=== PATIENT | male | born 1965 | race Caucasian/White ===

== ENCOUNTER 2019-06-08 16:17 | Emergency (ER) | payer OTHER ==
[~2019-06-08] VITALS: Ht 188 cm; Wt 108.9 kg
--- NOTE | 2019-06-08 16:27 | NUR ---
PATIENT BROUGHT IN BY [employer]. PATIENT FELL AT HOME, HAS LIP LACERATION. PATIENT POSITIVE FOR ORTHOSTATIC HYPOTENSION PER [employer] 500ML NS STARTED BY [employer]. LEFT AC IV STARTED ON THE FIELD
--- NOTE | 2019-06-08 16:29 | NUR ---
WALKED IN AT BEDSIDE
[2019-06-08] MEDS ORDERED: IV NORMAL SALINE 1000 ML BAG IV ONE (16:30)
--- NOTE | 2019-06-08 16:35 | NUR ---
LAB WORK UP BEING DONE AT THIS TIME
[2019-06-08 16:49] LABS: BASOPHILS % (AUTO) 0.6 % (0.0-2.0); EOSINOPHILS # (AUTO) 0.1 K/uL (0.0-0.7); EOSINOPHILS % (AUTO) 0.8 % (0.0-7.0); HEMATOCRIT 41.2 % (36.7-47.1); HEMOGLOBIN 14.5 g/dL (12.5-16.3); LYMPHOCYTES % (AUTO) 11.8 % (20.5-51.5); MEAN CORPUSCULAR HEMOGLOBIN 31.5 uug (23.8-33.4); MEAN CORPUSCULAR HGB CONC 35 g/dL (32.5-36.3); MEAN CORPUSCULAR VOLUME 89.3 fL (73.0-96.2); MONOCYTES # (AUTO) 0.5 K/uL (2.0-10.0); MONOCYTES % (AUTO) 5.9 % (0.0-11.0); NEUTROPHILS # (AUTO) 6.6 K/uL (1.8-8.9); NEUTROPHILS % (AUTO) 80.9 % (38.5-71.5); PLATELET COUNT (AUTO) 198 K/uL (152-348); RED BLOOD CELL COUNT(AUTO) 4.61 MIL/uL (4.06-5.63); WHITE BLOOD COUNT (AUTO) 8.1 K/uL (3.6-10.2)
[2019-06-08 17:03] LABS: BILIRUBIN,DIRECT 0.2 mg/dL (0.0-0.2); BILIRUBIN,TOTAL 0.6 mg/dL (0.2-1.0); CREATININE 1.6 mg/dL (0.6-1.3); POTASSIUM 4.2 mmol/L (3.5-5.1); TOTAL PROTEIN, SERUM 6.7 g/dL (6.4-8.2)
[2019-06-08] MEDS ORDERED: ZOLP12.52 PO (17:15)
[2019-06-08] MEDS ORDERED: HYDR200T4 PO (17:16)
[2019-06-08] MEDS ORDERED: BIOT1TAB PO (17:16)
[2019-06-08] MEDS ORDERED: ASPI81TA31 PO (17:16)
[2019-06-08] MEDS ORDERED: FINA5TAB11 PO (17:16)
[2019-06-08] MEDS ORDERED: METO-356 PO (17:16)
[2019-06-08] MEDS ORDERED: ROSU10TA2 PO (17:16)
[2019-06-08] MEDS ORDERED: DOXE10CA2 PO (17:16)
[2019-06-08] MEDS ORDERED: ARMO250T6 PO (17:16)
[2019-06-08] MEDS ORDERED: OXCA600T37 PO (17:16)
[2019-06-08] MEDS ORDERED: DICL1ADH11 TP (17:16)
[2019-06-08] MEDS ORDERED: CHOL40002 PO (17:16)
[2019-06-08] MEDS ORDERED: GABA-534 PO (17:16)
[2019-06-08] MEDS ORDERED: LOSA100T31 PO (17:16)
--- NOTE | 2019-06-08 17:27 | NUR ---
PATIENT BEING DISCHARGED. ALL LABS AND TESTS NEGATIVE. DISCHAGE INSTRUCTIONS GIVEN TO PATIENT, AND IV DISCONTINUED.
== END 2019-06-08 18:01 | disposition home or self-care (01) ==
LOC: ER 16:20
DX: R55 Syncope and collapse (principal)
CPT/HCPCS: 36415; 70030-TC; 71045; 85025; 85730; 86900; 86901; 93005; A4663; J7030